=== PATIENT | female | born 1950 ===

== ENCOUNTER 2017-10-04 12:04 | Emergency (ER) | payer SELFPAY ==
[2017-10-04 12:08] VITALS: BMI 35.1
[2017-10-04 12:09] VITALS: BP 169/107; PULSE 88; RESP 16; TEMP 98.3; O2SAT 98
--- NOTE | 2017-10-04 12:43 | ED PDOC ---
HPI: General Adult Time Seen by Provider: 10/04/17 12:23 Chief Complaint (Nursing): Breast Problem Chief Complaint (Provider): right chest wall pain History Per: Patient Additional Complaint(s): Right breast pain and right lateral chest wall pain status post fall 8 days ago. She was seen a few days ago by her primary doctor and was started on diclofenac but this has not helped the pain. Patient states pain is worse with movement and deep inspiration. She rates current pain as an 8 out of 10. PMD: [facility] Past Medical History Reviewed: Historical Data, Nursing Documentation, Vital Signs Vital Signs: Last Vital Signs Temp 98.3 F 10/04/17 12:07 Pulse 88 10/04/17 12:07 Resp 16 10/04/17 12:07 BP 169/107 H 10/04/17 12:07 Pulse Ox 98 10/04/17 13:18 - Medical History PMH: Diabetes, HTN, Osteoporosis - Surgical History Surgical History: Cholecystectomy, (x 1) - Family History Family History: States: No Known Family Hx - Living Arrangements Living Arrangements: With Family - Social History Current smoker - smoking cessation education provided: No Drugs: Denies - Home Medications Home Medications: Ambulatory Orders Medication Instructions Recorded Ibuprofen [Motrin] 600 mg PO Q8 #30 tab 01/21/15 Azithromycin [Zithromax] 250 mg PO DAILY 5 Days tab 02/28/16 Ibuprofen [Motrin] 600 mg PO TID 7 Days tab 02/28/16 Docusate [Colace] 100 mg PO BID #14 cap 04/29/16 Ondansetron [Zofran Odt] 4 mg PO Q8 PRN #15 odt 04/29/16 oxyCODONE/Acetaminophen [Percocet 1 ea PO Q6 PRN #15 tab 04/29/16 5/325 mg Tab] Cyclobenzaprine [Cyclobenzaprine 10 mg PO TID PRN #20 tab 10/04/17 HCl] Naproxen [Naprosyn] 500 mg PO BID #20 tab 10/04/17 - Allergies Allergies/Adverse Reactions: Allergies Allergy/AdvReac Type Severity Reaction Status Date / Time No Known Allergies Allergy Verified 10/04/17 12:18 Review of Systems ROS Statement: Except As Marked, All Systems Reviewed And Found Negative Constitutional: Negative for: Fever, Chills Cardiovascular: Positive for: Other (right breast pain, right lateral chest wall pain s/p fall 8 days ago) Respiratory: Positive for: Other (pain with deep inspiration). Negative for: Cough Gastrointestinal: Negative for: Nausea, Vomiting, Abdominal Pain Physical Exam - Reviewed Nursing Documentation Reviewed: Yes Vital Signs Reviewed: Yes - Physical Exam Appears: Positive for: Well, Non-toxic, No Acute Distress Skin: Positive for: Normal Color. Negative for: Rash Eye Exam: Positive for: Normal appearance Neck: Positive for: Normal Cardiovascular/Chest: Positive for: Regular Rate, Rhythm, Other (Tenderness to right breast and right lateral chest wall, no palpable bony deformity) Respiratory: Negative for: Wheezing, Respiratory Distress Gastrointestinal/Abdominal: Positive for: Soft. Negative for: Tenderness Back: Positive for: Vertebral Tenderness (Right thoracic paraspinal region tenderness and mild swelling noted) Extremity: Positive for: Normal ROM Neurologic/Psych: Positive for: Alert, Oriented - ECG Interpretation Of ECG: NSR 70 bpm no acute changes, reviewed by PA and ED attending O2 Sat by Pulse Oximetry: 98 Pulse Ox Interpretation: Normal - Other Rad CXR with right rib series X-Ray: Interpreted by Me, Viewed By Me X-Ray Interpretation: no fx, no acute finding Medical Decision Making Medical Decision Makin67 year old with right chest wall pain s/p fall 8 days ago Plan: IM toradol PO tylenol PO tramadol CXR with right rib series EKG Patient is aware of all diagnostic testing results, all questions answered. Patient was given incentive spirometer. Patient reports improvement pain after meds given. Prescriptions for Naprosyn and Flexeril provided. Patient was instructed to follow-up with clinic in 2-3 days. Disposition - Clinical Impression Clinical Impression: Chest wall contusion, Pain of breast - Patient ED Disposition Is Patient to be Admitted: No Counseled Patient/Family Regarding: Studies Performed, Diagnosis, Need For Followup, Rx Given - Disposition Referrals: [facility] [Outside] Disposition: Routine/Home Disposition Time: 13:17 Condition: STABLE Additional Instructions: Use incentive spirometer as directed. Take prescription meds as directed as needed for pain. Follow-up with clinic in 2-3 days Prescriptions: Cyclobenzaprine [Cyclobenzaprine HCl] 10 mg PO TID PRN #20 tab PRN Reason: Muscle Spasm Naproxen [Naprosyn] 500 mg PO BID #20 tab Instructions: How to Use an Incentive Spirometer, Contusion (DC), Bruised Rib Forms: [employer] ([employer]) Print Language: OCCITAN
--- NOTE | 2017-10-04 13:45 | RAD ---
PROCEDURE: Radiographs of the Chest and Right Ribs. HISTORY: trauma COMPARISON: None available. TECHNIQUE: Frontal radiograph of the chest and multiple oblique radiographs of the right ribs were obtained. FINDINGS: RIGHT RIBS: No and clear acute fracture or focal lesion visualized. LUNGS: The lungs are well inflated. PLEURA: No pneumothorax or pleural fluid. CARDIOVASCULAR: Normal sized heart. No pulmonary vascular congestion. OTHER FINDINGS: None. IMPRESSION: No acute rib fracture. Clear lungs.
--- NOTE | 2017-10-06 09:08 | CARD ---
APPROVED REPORT EKG Measurement Heart [id number] <Conclusion> Normal sinus rhythm Inferior infarct, age undetermined Abnormal ECG
== END 2017-10-04 13:54 | disposition home or self-care (01) ==
LOC: H.ER 12:04
DX: S20.219A Contusion of unspecified front wall of thorax, initial encounter (principal); W19.XXXA Unspecified fall, initial encounter; Y92.89 Other specified places as the place of occurrence of the external cause; N64.4 Mastodynia; E11.9 Type 2 diabetes mellitus without complications; I10 Essential (primary) hypertension; M81.0 Age-related osteoporosis without current pathological fracture
CPT/HCPCS: 71101; 93005; 96372; 99282; J1885